=== PATIENT | female | born 1955 | race Caucasian/White ===

== ENCOUNTER 2017-06-05 13:55 | Outpatient (RCR) | payer OTHER ==
[2017-06-05] MEDS ORDERED: SYNTHROID0.137 MG PO (16:10)
[2017-06-05] MEDS ORDERED: ZANTAC 300300 MG PO (16:10)
[2017-06-05] MEDS ORDERED: FERROUS GL325 MG/TAB PO (16:11)
[2017-06-05] MEDS ORDERED: ZOCOR 40MG40 MG PO (16:11)
[2017-06-05] MEDS ORDERED: NORCO 325 MG-51 TAB PO (21:30)
[2017-06-05] MEDS ORDERED: XANAX 0.5MG0.5 MG PO (21:31)
[2017-06-05] MEDS ORDERED: AMITIZA24 MCG PO (21:32)
[2017-06-05] MEDS ORDERED: ALLEGRA-D 24HR1 T24 PO (21:33)
[2017-06-06] MEDS ORDERED: MULTAQ400 MG PO (12:10)
[2017-06-06] MEDS ORDERED: ASPIRIN 81M81 MG/TA2 PO (12:11)
[2017-07-09] MEDS ORDERED: ASPIRIN 81M81 MG/TA2 PO (08:32)
[2017-07-09] MEDS ORDERED: MULTAQ400 MG PO (08:33)
[2017-07-09] MEDS ORDERED: ZOCOR 40MG40 MG PO (08:35)
[2017-07-09] MEDS ORDERED: PREDNISONE20 MG PO (08:40)
[2017-07-09] MEDS ORDERED: CELEBREX 200MG200 MG PO (08:41)
[2017-07-09] MEDS ORDERED: SYNTHROID0.125 MG/T PO (08:43)
[2017-07-09] MEDS ORDERED: FERROUS SU325 MG/TAB PO (08:45)
[2017-07-09] MEDS ORDERED: B-121000 MCG PO (08:46)
[2017-07-09] MEDS ORDERED: VITAMIN C500 MG PO (08:50)
[2017-07-09] MEDS ORDERED: TYLENOL 8 HR PO (08:56)
[2017-07-09] MEDS ORDERED: ELIQUIS 5MG PO (08:59)
[2017-07-09] MEDS ORDERED: EXCEDRIN1 TAB PO (09:00)
== END 2017-07-10 10:37 | disposition home or self-care (01) ==
LOC: WSOH 13:55
DX: S70.01XA Contusion of right hip, initial encounter (principal); W01.0XXA Fall on same level from slipping, tripping and stumbling without subsequent striking against object, initial encounter; Y93.E5 Activity, floor mopping and cleaning; Y92.129 Unspecified place in nursing home as the place of occurrence of the external cause; Y99.0 Civilian activity done for income or pay

== ENCOUNTER 2017-06-05 15:11 | Inpatient (IN) | payer OTHER ==
[2017-06-05] VITALS (135 sets, daily range): BP systolic 108–136; BP diastolic 66–81; PULSE 70–75; TEMP 98–98.1; O2SAT 93–100
[~2017-06-05] VITALS: Ht 157.5 cm; Wt 68.2 kg
[2017-06-05] MEDS ORDERED: ZANTAC 300300 MG PO (16:10)
[2017-06-05] MEDS ORDERED: SYNTHROID0.137 MG PO (16:10)
[2017-06-05] MEDS ORDERED: ZOCOR 40MG40 MG PO (16:11)
[2017-06-05] MEDS ORDERED: FERROUS GL325 MG/TAB PO (16:11)
[2017-06-05 16:14] LABS: BASO # 0.1 (0.0-0.2); BASO % 0.3 % (0.0-2.0); EOS # 0.4 (0.0-0.7); EOS % 2.5 % (0-4.0); GRAN % 61.2 % (42.2-75.2); HEMATOCRIT 44.2 % (37.0-47.0); HEMOGLOBIN 14.6 g/dl (12.5-16.0); LYMPH # 4.2 (1.2-3.4); LYMPH % 28.7 % (20.0-51.0); MEAN CELL VOLUME 93 fl (80.0-100.0); MEAN CORPUSCULAR HEMOGLOBIN 31 pg (27.0-31.0); MEAN CORPUSCULAR HGB CONC 33 g/dl (33.0-37.0); MONO # 0.9 (0.1-0.6); MONO % 6.1 % (1.7-9.3); PLATELET COUNT 478 K/mm3 (130-400); RED BLOOD COUNT 4.76 M/mm3 (4.10-5.30); REDCELL DISTRIBUTION WIDTH-CV 12.5 % (11.5-14.5)
[2017-06-05 16:18] LABS: PROTHROMBIN TIME 11.6 SECONDS (9.7-12.8)
[2017-06-05 16:27] LABS: ALBUMIN 4.5 gm/dL (3.5-5.0); BILIRUBIN,TOTAL 0.4 mg/dL (0.0-1.0); CALCIUM 9.4 mg/dL (8.4-10.2); CREATININE, serum 0.57 mg/dL (0.52-1.25); POTASSIUM 4.1 mmol/L (3.4-5.0); TOTAL PROTEIN 7.4 gm/dL (6.4-8.2)
[2017-06-05 16:37] LABS: TROPONIN-I 0.013 ng/mL (0.000-0.034)
[2017-06-05] MEDS ORDERED: NORCO 325 MG-51 TAB PO (21:30)
[2017-06-05] MEDS ORDERED: XANAX 0.5MG0.5 MG PO (21:31)
[2017-06-05] MEDS ORDERED: AMITIZA24 MCG PO (21:32)
[2017-06-05] MEDS ORDERED: ALLEGRA 60MG TA60 MG (21:33)
[2017-06-06] VITALS (561 sets, daily range): BP systolic 113–139; BP diastolic 72–83; PULSE 62–65; TEMP 96.8–98; O2SAT 91–100
[2017-06-06] MEDS ORDERED: MULTAQ400 MG PO (12:10)
[2017-06-06] MEDS ORDERED: ASPIRIN 81M81 MG/TA2 PO (12:11)
== END 2017-06-06 12:45 | disposition left against medical advice (07) | DRG 310 ==
LOC: COL.ER 15:11 → ICU 16:45
PROVIDERS: Emergency Medicine
DX: I48.91 Unspecified atrial fibrillation (principal); E78.5 Hyperlipidemia, unspecified; I10 Essential (primary) hypertension; K21.9 Gastro-esophageal reflux disease without esophagitis; E03.9 Hypothyroidism, unspecified; D64.9 Anemia, unspecified
CPT/HCPCS: 99222-AI; J1650; J7030; J7050

== ENCOUNTER 2018-09-21 11:30 | Day surgery (SDC) | payer OTHER ==
[~2018-09-21] VITALS: Ht 157.6 cm; Wt 67.0 kg
[~2018-09-21 11:30] MED LIST: ALLEGRA-D 24HR1 T24 PO; AMITIZA24 MCG PO; ASPIRIN 81M81 MG/TA2 PO; B-121000 MCG PO; CELEBREX 200MG200 MG PO; ELIQUIS 5MG PO; EXCEDRIN1 TAB PO; FERROUS GL325 MG/TAB PO; FERROUS SU325 MG/TAB PO; MULTAQ400 MG PO; NORCO 325 MG-51 TAB PO; PREDNISONE20 MG PO; SYNTHROID0.125 MG/T PO; SYNTHROID0.137 MG PO; TYLENOL 8 HR PO; VITAMIN C500 MG PO; XANAX 0.5MG0.5 MG PO; ZANTAC 300300 MG PO; ZOCOR 40MG40 MG PO
[2018-09-21 12:08] LABS: HEMATOCRIT 39.1 % (37.0-47.0); HEMOGLOBIN 12.8 g/dl (12.5-16.0); MEAN CELL VOLUME 89 fl (80.0-100.0); MEAN CORPUSCULAR HEMOGLOBIN 29 pg (27.0-31.0); MEAN CORPUSCULAR HGB CONC 33 g/dl (33.0-37.0); MEAN PLATELET VOLUME 10.2 fl (7.4-10.4); PLATELET COUNT 333 K/mm3 (130-400); RED BLOOD COUNT 4.41 M/mm3 (4.10-5.30); REDCELL DISTRIBUTION WIDTH-CV 13.9 % (11.5-14.5)
[2018-09-21 12:11] LABS: INR 1.2 (0.8-3.0); PROTHROMBIN TIME 13.8 SECONDS (9.7-12.8)
[2018-09-21 12:15] LABS: CALCIUM 8.5 mg/dL (8.4-10.2); CREATININE, serum 0.57 (0.52-1.25); POTASSIUM 4.2 mmol/L (3.4-5.0)
[2018-09-21] MEDS ORDERED: ALLEGRA 180MG180 MG PO (12:36)
[2018-09-21] MEDS ORDERED: PROTONIX 40MG T40 MG PO (12:38)
[2018-09-21] MEDS ORDERED: RYTHMOL225 MG PO ×2 (12:40→15:06)
[2018-09-21] MEDS ORDERED: SYNTHROID0.175 MG PO (12:40)
[2018-09-21] MEDS ORDERED: ADVIL200 MG PO (12:49)
[2018-09-21] MEDS ORDERED: ELOCON 30 ML30 ML TOP (12:51)
[2018-09-21] MEDS ORDERED: CUTIVATE0.05% TOP (12:52)
[2018-09-21 13:00] VITALS: BP 130/84; PULSE 66; TEMP 98.1
[2018-09-21 14:10] VITALS: BP 137/97; PULSE 70
--- NOTE | 2018-09-21 14:10 | NUR ---
Report from Vazquez HAMLIN from [employer]. CV complete, pt roselia well.
[2018-09-21 14:25] VITALS: BP 142/89; PULSE 64
[2018-09-21 14:40] VITALS: BP 131/85; PULSE 60; TEMP 97.5
[2018-09-21 14:55] VITALS: BP 129/88; PULSE 68
[2018-09-21 15:10] VITALS: BP 135/79; PULSE 62
--- NOTE | 2018-09-21 15:20 | NUR ---
Pt has ambulated, voided and roselia PO intake s n/v. PIV removed with catheter intact.
--- NOTE | 2018-09-21 15:30 | NUR ---
Pt discharged per w/c by nurse with .
== END 2018-09-21 16:35 | disposition home or self-care (01) ==
LOC: COL.CAR 11:30
PROVIDERS: Internal Medicine Cardiovascular Disease
DX: I48.0 Paroxysmal atrial fibrillation (principal); J45.909 Unspecified asthma, uncomplicated; I51.7 Cardiomegaly; E78.00 Pure hypercholesterolemia, unspecified; I10 Essential (primary) hypertension; F41.9 Anxiety disorder, unspecified; K21.9 Gastro-esophageal reflux disease without esophagitis; E03.9 Hypothyroidism, unspecified; D50.9 Iron deficiency anemia, unspecified; Z79.01 Long term (current) use of anticoagulants; Z87.891 Personal history of nicotine dependence; Z82.49 Family history of ischemic heart disease and other diseases of the circulatory system
CPT/HCPCS: J2704